=== PATIENT | female | born 1960 | race Caucasian/White ===

== ENCOUNTER 2021-11-04 06:49 | Emergency (ER) | payer OTHER, SELFPAY ==
[2021-11-04 06:52] VITALS: BP 136/88; PULSE 102; RESP 18; TEMP 37.1; O2SAT 99
--- NOTE | 2021-11-04 07:00 | DI.CT_ITS ---
Exam(s) CT CHEST WO EXAM: CT CHEST WO CLINICAL HISTORY: ?svc syndrome TECHNIQUE: Imaging Protocol: Axial computed tomography images with coronal and sagittal reformatted images were created and reviewed CONTRAST MATERIAL: Intravenous: Omnipaque 350 Contrast volume:structured data in ml. COMPARISON: No exams were available for comparison FINDINGS: Tracheobronchial tree: No bronchiectasis or mucous plugging. Mediastinum and Joycelyn: No dominant adenopathy or fluid collection. Pulmonary parenchyma: Linear atelectasis or scarring in the lingula and right middle lobe 5 millimete r left lower lobe nodule. No consolidation or dominant measurable mass. Pleura: No effusion or pneumothorax. Heart: Trace pericardial effusion versus pericardial thickening seen inferiorly. The heart is not di lated. Mild coronary artery calcifications are seen. SVC is normal in diameter. Aorta: Thoracic aorta non-dilated. Upper abdomen: Enlarged fatty liver. Small left adrenal adenoma. Lymph nodes: Within normal limits. Bones: Degenerative disc changes. No fractures.. Esophagus: Unremarkable. No obvious wall thickening or abnormal distension. Soft tissues: Unremarkable. IMPRESSION: Mild bilateral scarring and or atelectasis. Trace pericardial effusion versus pericardial thickening . 5 millimeter left lower lobe nodule. For high risk patients, consider low-dose screening CT in 1 year. For low risk patients, no further follow-up. RADIATION DOSE DELIVERED: 750.02mGy.cm Total DLP DATA REPOSITORY: All CT scans at this facility are submitted to the National Radiology Data Registry (NRDR) Dose Index Registry (DIR) with the [employer] (ACR). RADIATION OPTIMIZATION: All CT scans at this facility use at least one of these dose optimization te chniques: automated exposure control; mA and/or kV adjustment per patient size (includes targeted exa ms where dose is matched to clinical indication); or iterative reconstruction.
--- NOTE | 2021-11-04 07:12 | ED.GENADUL_ITS ---
Discharge Plan Disposition Patient Disposition: STILL A PATIENT Condition: Stable Discharge Details Clinical Impression: Facial swelling, Throat discomfort Primary Care Provider: Unknown,Unknown ED Provider: Jesus Greenberg Home Meds and New Rx's Prescriptions: No Action levothyroxine 137 mcg Tablet 137 mcg PO DAILY fluticasone propion-salmeterol [Advair Diskus] 250-50 mcg/dose Blister With Device 1 inh INHALATION BID venlafaxine 75 mg Capsule,Extended Release 24hr 75 mg PO DAILY metoprolol succinate 50 mg Tablet Extended Release 24 Hr 50 mg PO DAILY meloxicam 15 mg Tablet 15 mg PO DAILY albuterol sulfate 90 mcg/actuation Hfa Aerosol Inhaler 2 puff INHALATION 6XD PRN Medical Decision Making 61 yo female with hx of hypothyroidism, asthma, who comes in with chief complaint of facial swelling and neck swelling intermittently for the past two weeks. She states it seems the worst in the morning and gets better throughout the day. Today she woke up and felt more swollen in the neck and face so came here. She denies dyspnea, difficulty swallowing, rashes, abdominal pain, chest pain. She arrives stable speaking clearly in full sentences. She has no rashes on exam, no urticaria. She does have some edema under her eyes, no rashes and no warmth, eomi, no eye pain. She has no restricted neck movements, normal posterior pharynx and midline uvula. She has clear lung sounds. Her symptoms could be from allergies but given she reports her symptoms are worse in the morning concern for svc syndrome, will obtain ct chest without contrast and also ct neck though my suspicion for retropharyngeal abscess is low based on exam.Will give a dose of steroids and also obtain cbc, cmp, and tsh. Pt signed out to oncoming provider pending imaging and lab results Differential Diagnosis Differential Diagnosis: allergies, abscess, svc syndrome HPI General Mode of arrival: ambulatory . Date/Time Provider Initiated Documentation: 11/04/21 06:51 . Limitations to Documentation: no limitations . Information obtained by: patient . History of Present Illness 61 year old F presents to the emergency department with the chief complaint of facial and neck swelling, described as moderate, Patient started experiencing this week(s) (2) and it has been intermittent. No relieving factors improve symptom(s), Patient did receive the following treatments prior to arrival, none Related Data Home Medications Medication Instructions Recorded Confirmed albuterol sulfate 90 mcg/actuation 2 puff inhalation 6XD PRN 11/04/21 11/04/21 aerosol inhaler fluticasone 250 mcg-salmeterol 50 1 inh inhalation BID 11/04/21 11/04/21 mcg/dose blistr powdr for inhalation (Advair Diskus) levothyroxine 137 mcg tablet 137 mcg PO DAILY 11/04/21 11/04/21 meloxicam 15 mg tablet 15 mg PO DAILY 11/04/21 11/04/21 metoprolol succinate 50 mg 50 mg PO DAILY 11/04/21 11/04/21 tablet,extended release 24 hr venlafaxine 75 mg capsule,extended 75 mg PO DAILY 11/04/21 11/04/21 release 24 hr Allergies Allergy/AdvReac Type Severity Reaction Status Date / Time azithromycin [From Zithromax] AdvReac Unverified 11/04/21 07:00 General Stated Complaint: FacialProb JUAQUIN: 3 Review of Systems All systems reviewed & are unremarkable except as noted in HPI and below Constitutional Constitutional: Denies chills, Denies fever(s) and Denies weakness ENT Ears, Nose, Mouth, and Throat: Denies change in voice Cardiovascular Cardiovascular: Denies chest pain and Denies dyspnea Respiratory Respiratory: Denies cough and Denies dyspnea Gastrointestinal Gastrointestinal: Denies abdominal pain, Denies nausea and Denies vomiting Genitourinary Genitourinary: Denies dysuria Integumentary/Breasts Skin/Breast: Denies rash Neurologic Neurologic: Denies weakness PFSH All Active Problems (Updated 11/04/21 @ 07:22 by Jesus Greenberg MD) Facial swelling (Acute) Throat discomfort (Acute) Social History Smoking/Tobacco Use Status: Current every day Tobacco Type: e-cigarettes Smoking risk assessment performed?: Yes Alcohol Intake: never Drug use: Never Substance use type: does not use Do you feel safe at home: Yes Do you feel safe in your relationship?: Yes Exam Const General: no acute distress Orientation: alert HENCO Head: normal to inspection Ears: external ears normal General nose exam: external nose normal Mouth: moist mucous membranes Eyes General: appearance normal, both eyes and all related structures Neck Neck: normal visual inspection Resp Effort & Inspection: normal respiratory effort and able to speak in complete sentences Cardio Rate: regular rate GI Palpation: soft and nontender Skin General skin exam: no rashes or lesions noted Neuro General: patient alert and patient oriented x3 Extrem General: normal to inspection Psych Mental Status: mental status grossly normal Course Vital Signs Vital signs: Vital Signs Temperature 37.1 C 11/04/21 06:52 Pulse 102 H 11/04/21 06:52 Respiratory Rate 18 11/04/21 06:52 Blood Pressure 136/88 11/04/21 06:52 Pulse Oximetry 99 11/04/21 06:52 Temperature 37.1 C 11/04/21 06:52 Temperature Source Temporal Artery Scan 11/04/21 06:52 Pulse 102 H 11/04/21 06:52 Respiratory Rate 18 11/04/21 06:52 Respiratory Effort Non-Labored 11/04/21 06:58 Blood Pressure 136/88 11/04/21 06:52 Blood Pressure Position Sitting 11/04/21 06:52 Pulse Oximetry 99 11/04/21 06:52 Oxygen Delivery Method Room Air 11/04/21 06:52 Oxygen Flow Rate 0 11/04/21 06:52 Pain Level 0 11/04/21 06:52 Sign Out Sign Out Data: Sign Out Comment: 1-2 weeks facial and neck swelling that she says is worse in the morning. Does have some mild facial swelling, reassuring throat exam. Pending neck ct, chest ct for possible svc syndrome and reassessment Last updated by Jesus Greenberg MD at 11/04/21 07:29
[2021-11-04] MEDS: methylPREDNISolone SUCC 125 MG VIAL IVP (07:38)
[2021-11-04] MEDS: Normal Saline Flush 10 ML SYR IVP (07:38)
[2021-11-04 07:40] LABS: Abs Immature Grans 0.09 10^3/uL (0.0-0.06); Absolute Basophil Count 0.03 10^3/uL (0.0-0.2); Absolute Eosinophil Count 0.09 10^3/uL (0.0-0.7); Absolute Lymphocyte Count 1.69 10^3/uL (1.2-3.4); Absolute Monocyte Count 0.34 10^3/uL (0.1-0.8); Absolute Neutrophil Count 2.76 10^3/uL (1.2-6.7); Basophils % 0.6; Eosinophils % 1.8; HCT 42.4 % (36.0-46.0); HGB 14.9 g/dL (11.2-15.7); Immature Grans % 1.8; Lymphocytes % 33.8; MCH 32.2 pg (27.0-33.0); MCHC 35.1 % (32.0-36.0); MCV 92 fL (80-95); MPV 8.9 fL (8.0-11.0); Monocytes % 6.8; Neutrophils % 55.2; Platelet Count 346 10^3/uL (130-400); RBC 4.63 10^6/uL (3.93-5.22); RDW 12.3 % (11.7-14.6); RDW-SD 41.4 fL
[2021-11-04 07:58] LABS: Source Nasal/Nares
[2021-11-04 07:59] LABS: ALT 23 U/L (14-59); AST 13 U/L (15-37); Albumin 3.5 g/dL (3.4-5.0); Alkaline Phosphatase 86 U/L (46-116); Anion Gap 7.8 mmol/L (3-11); BUN 10 mg/dL (7-18); Bilirubin, Direct 0.1 mg/dL (0.0-0.2); Bilirubin, Total 0.4 mg/dL (0.2-1.0); CO2 28.2 mmol/L (21.0-32.0); CREATININE 0.8 mg/dL (0.55-1.02); Calcium 8.7 mg/dL (8.5-10.1); Chloride 105 mmol/L (98-107); Glucose 93 mg/dL (74-106); Lipase 65 U/L (73-393); Sodium 141 mmol/L (136-145); TSH (W/Ref FT4) 2.18 uIU/mL (0.36-3.74); Total Protein 7.2 g/dL (6.4-8.2)
--- NOTE | 2021-11-04 08:10 | DI.CT_ITS ---
Exam(s) CT NECK WO EXAM: CT NECK WO CLINICAL HISTORY: feels throat swelling ?abscess. TECHNIQUE: Imaging Protocol: Axial computed tomography images with coronal and sagittal reformatted images were created and reviewed CONTRAST MATERIAL: Noncontrast COMPARISON: No exams were available for comparison FINDINGS: Parotids/submandibular/thyroid gland: Normal. Lymphadenopathy: There is scattered lymph nodes seen along the level one to level three all measurin g less than 8 mm in short axis diameter which are physiologic in nature. Soft tissues: The floor the mouth is unremarkable. The epiglottis and vocal cords are within normal limits. Images through both lung apices are unremarkable. There are degenerative changes in the cervical spine. The esophagus is not dilated. Sinuses and mas toid air cells appear clear. IMPRESSION: No evidence of abscess or other acute abnormality. RADIATION DOSE DELIVERED: 726.63mGy.cm Total DLP DATA REPOSITORY: All CT scans at this facility are submitted to the National Radiology Data Registry (NRDR) Dose Index Registry (DIR) with the [employer] (ACR). RADIATION OPTIMIZATION: All CT scans at this facility use at least one of these dose optimization te chniques: automated exposure control; mA and/or kV adjustment per patient size (includes targeted exa ms where dose is matched to clinical indication); or iterative reconstruction.
[2021-11-04 08:16] VITALS: BP 126/60; PULSE 87; RESP 16; TEMP 36.4; O2SAT 98
[2021-11-04 08:48] LABS: COVID-19 PCR Negative (Negative)
[2021-11-04 09:48] VITALS: BP 105/91; PULSE 87; RESP 16; TEMP 36.4; O2SAT 96
--- NOTE | 2021-11-04 09:56 | DI.VRAD_ITS ---
PROCEDURE INFORMATION: Exam: CT Chest Without Contrast; Diagnostic Exam date and time: 11/04/2021 8:11 AM Age: 61 years old Clinical indication: Other: ? Svc TECHNIQUE: Imaging protocol: Diagnostic computed tomography of the chest without contrast. 3D rendering (Not supervised by radiologist): MIP and/or 3D reconstructed images were created by the technologist. Radiation optimization: All CT scans at this facility use at least one of these dose optimization techniques: automated exposure control; mA and/or kV adjustment per patient size (includes targeted exams where dose is matched to clinical indication); or iterative reconstruction. COMPARISON: CT NECK WO 11/04/2021 8:02 AM FINDINGS: Lungs: No focal airspace consolidation. Linear/bandlike opacities of the lingula and right middle lobe likely represent scarring versus atelectasis. There is a 5 mm nodule in the left lower lobe. Additional scattered 2-3 mm pulmonary micro nodules. Mild diffuse bronchial wall thickening. Pleural spaces: Unremarkable. No pneumothorax. No pleural effusion. Heart: Heart size is normal. Trace pericardial effusion measuring up to 1 cm in thickness. Mild coronary artery calcifications. Lymph nodes: Unremarkable. No enlarged lymph nodes. Vasculature: Unremarkable. No aortic aneurysm. Liver: Hepatic steatosis. Adrenal glands: Left adrenal gland 1.3 cm nodule with mean density of less than 10 Hounsfield units, consistent with adenoma. Bones/joints: Mild to moderate thoracic spondylosis. No acute osseous findings. Soft tissues: Unremarkable. IMPRESSION: 1. No acute intrathoracic findings. 2. A few solid pulmonary nodules, largest measures up to 5 mm. For patients at low risk (minimal or absent history of smoking and of other known risk factors), no routine follow-up is indicated. For patients at high risk (history of smoking or of other known risk factors), consider optional CT Chest at 12 months. (Reference: Deonte) REFERENCES: Justicehosunday H, et al. Guidelines for Management of Incidental Pulmonary Nodules Detected on CT Images: From the Fleischner Society 2017. Radiology. 2017;284(1):228-243. Dictated and Authenticated by: Malina Davila MD. Ordering:GUALBERTO Lee MD
--- NOTE | 2021-11-04 09:59 | DI.VRAD_ITS ---
PROCEDURE INFORMATION: Exam: CT Neck Without Contrast Exam date and time: 11/04/2021 8:02 AM Age: 61 years old Clinical indication: Other: Feels throat swelling ? abscess TECHNIQUE: Imaging protocol: Computed tomography of the neck without contrast. Radiation optimization: All CT scans at this facility use at least one of these dose optimization techniques: automated exposure control; mA and/or kV adjustment per patient size (includes targeted exams where dose is matched to clinical indication); or iterative reconstruction. COMPARISON: No relevant prior studies available. FINDINGS: Pharynx: Unremarkable non-contrast appearance. Larynx: Unremarkable non-contrast appearance. Epiglottis is normal. Prevertebral and retropharyngeal spaces: Unremarkable. Salivary glands: Unremarkable. Glands are normal in size. Thyroid: Normal. No enlarged or calcified nodules. Lymph nodes: No lymphadenopathy. Trachea: Visualized trachea is unremarkable. Lungs: Unremarkable as visualized. Bones/joints: Mild cervical spondylosis. No acute fracture. Soft tissues: No significant soft tissue swelling. IMPRESSION: No acute findings. Dictated and Authenticated by: Malina Davila MD. Ordering:GUALBERTO Lee MD
--- NOTE | 2021-11-04 10:14 | W.EDPROG ---
Date of service: 11/04/21 Time of Service: 10:14 Medical Decision Making Please see Dr. Greenberg's note regarding initial ED presentation course. Plan at signout was to follow-up on CT of the neck and CT of the chest. CT of the neck was interpreted by radiology: No acute findings. CT of the chest was interpreted by radiology: No acute intrathoracic findings. Few solid pulmonary nodules largest measuring up to 5 mm. Patient does have a smoking history. Patient should have repeat CT imaging in 12 months. Results were discussed with the patient and I recommended outpatient follow-up. Sign Out Sign Out Data: Sign Out Comment: 1-2 weeks facial and neck swelling that she says is worse in the morning. Does have some mild facial swelling, reassuring throat exam. Pending neck ct, chest ct for possible svc syndrome and reassessment Last updated by Jesus Greenberg MD at 11/04/21 07:29 Discharge Plan Disposition Patient Disposition: HOME Condition: Stable Discharge Details Clinical Impression: Facial swelling, Throat discomfort, Multiple pulmonary nodules Primary Care Provider: Unknown,Unknown ED Provider: John Meyers Home Meds and New Rx's Prescriptions: Continued levothyroxine 137 mcg Tablet 137 mcg PO DAILY fluticasone propion-salmeterol [Advair Diskus] 250-50 mcg/dose Blister With Device 1 inh INHALATION BID venlafaxine 75 mg Capsule,Extended Release 24hr 75 mg PO DAILY metoprolol succinate 50 mg Tablet Extended Release 24 Hr 50 mg PO DAILY meloxicam 15 mg Tablet 15 mg PO DAILY albuterol sulfate 90 mcg/actuation Hfa Aerosol Inhaler 2 puff INHALATION 6XD PRN Discharge Instructions Additional Instructions: CT imaging did reveal incidental finding of pulmonary nodules today. Given your history of smoking, it is recommended that you follow-up for repeat chest CT in 12 months. Please be sure to review CT results and outpatient plan in the future. Please contact your primary care physician to arrange follow-up. Return to the ER immediately for any worsening or new concerning symptoms. Discharge Data Discharge Date/Time-TO BE ENTERED AT DEPARTURE: 11/04/21 10:31
[2021-11-04 10:30] VITALS: BP 105/91; PULSE 87; RESP 16; TEMP 36.4; O2SAT 96
== END 2021-11-04 10:31 | disposition home or self-care (01) ==
PROVIDERS: Emergency Medicine; Emergency Provider Student in an Organized Health Care Education/Training Program
DX: R22.0 Localized swelling, mass and lump, head (principal); J02.9 Acute pharyngitis, unspecified; R22.1 Localized swelling, mass and lump, neck; R91.8 Other nonspecific abnormal finding of lung field
CPT/HCPCS: 36415; 71250; 80053; 83690; 87635; 96374; 99284; 70490; 82248; 83735; 84443; 85025; J2930

== ENCOUNTER 2021-11-06 17:52 | Emergency (ER) | payer OTHER, SELFPAY ==
[2021-11-06 18:03] VITALS: BP 152/84; PULSE 108; RESP 20; TEMP 36.5; O2SAT 97
[2021-11-06] MEDS: EPINEPHrine 0.3 MG KIT IM ×2 (18:22→20:44)
[2021-11-06] MEDS: diphenhydrAMINE 50 MG/ML VIAL 25 MG IVP (18:23)
[2021-11-06] MEDS: methylPREDNISolone SUCC 125 MG VIAL IVP (18:23)
--- NOTE | 2021-11-06 20:25 | W.ED.GENAD ---
Discharge Plan Disposition Patient Disposition: HOME Condition: Stable Discharge Details Clinical Impression: Facial swelling, Lip swelling Primary Care Provider: Unknown,Unknown ED Provider: Gala Almanza Home Meds and New Rx's Prescriptions: New prednisone 20 mg tablet 40 mg PO DAILY Qty: 10 0RF Continued levothyroxine 137 mcg Tablet 137 mcg PO DAILY fluticasone propion-salmeterol [Advair Diskus] 250-50 mcg/dose Blister With Device 1 inh INHALATION BID venlafaxine 75 mg Capsule,Extended Release 24hr 75 mg PO DAILY metoprolol succinate 50 mg Tablet Extended Release 24 Hr 50 mg PO DAILY meloxicam 15 mg Tablet 15 mg PO DAILY albuterol sulfate 90 mcg/actuation Hfa Aerosol Inhaler 2 puff INHALATION 6XD PRN Discontinued nystatin 100,000 unit/mL suspension 5 ml PO QID Label Comments: TAKE 5ML BY MOUTH FOUR TIMES A DAY SWISH FOR SEVERAL MINUTES THEN SWALLOW TYPICALLY START TO SEE IMPROVMENT IN 3 TO 4 DAYS CONTINUE MEDICATI Discharge Instructions Additional Instructions: Stop taking the clindamycin and the nystatin Take the prednisone daily, you will not need another dose until tomorrow You have been supplied an EpiPen, use today if you experience tongue swelling or difficulty swallowing, shortness of breath Please follow-up with your doctor your scheduled appointment Continue to take the steroids as prescribed Take Benadryl 25 mg every 6 hours for the next 3 to 5 days Return immediately should he have new or worsening complaints Medical Decision Making Initially I thought patient was on lisinopril my plan was to admit her, however sound like she was started on clindamycin for some facial swelling and nystatin Given that her symptoms are actually improved from this morning, she is maintaining secretions, and her airway is patent I think she stable for discharge home She has been there for 3 hours in the emergency department with improvement of symptoms after administration including Benadryl, epi, and Solu-Medrol These medications were discontinued She is placed on prednisone and will continue to take Benadryl Chest appointment with her primary care physician on Saturday and she is encouraged to follow-up for this appointment She is given list hospital to return should she have new or worsening complaints EpiPen was distributed for home with appropriate teaching Return precautions discussed in detail patient expressed understanding Reviewed CT findings from previous assessment Medical Records Medical records reviewed: Yes I reviewed the patient's medical records. HPI General Date/Time Provider Initiated Documentation: 11/06/21 17:59. HPI Narrative: This 61-year-old female presents with perioral edema, with report of left tongue swelling this morning when she awoke. Patient reportedly had Benadryl at that time and had partial alleviation of her tongue edema. She presents secondary to poor distant upper lip swelling. She states that she had COVID 2000 intermittent facial swelling. She states over the course of the past 3 days she has had random areas of perioral edema. She states she was placed on clindamycin approximately 3 days ago for her lip swelling reportedly. She was also placed on nystatin. She denies any chest pain or shortness of breath. She denies any dizziness or weakness. She denies any current difficulty swallowing. Related Data Home Medications Medication Instructions Recorded Confirmed albuterol sulfate 90 mcg/actuation 2 puff inhalation 6XD PRN 11/04/21 11/06/21 aerosol inhaler fluticasone 250 mcg-salmeterol 50 1 inh inhalation BID 11/04/21 11/06/21 mcg/dose blistr powdr for inhalation (Advair Diskus) levothyroxine 137 mcg tablet 137 mcg PO DAILY 11/04/21 11/06/21 meloxicam 15 mg tablet 15 mg PO DAILY 11/04/21 11/06/21 metoprolol succinate 50 mg 50 mg PO DAILY 11/04/21 11/06/21 tablet,extended release 24 hr venlafaxine 75 mg capsule,extended 75 mg PO DAILY 11/04/21 11/06/21 release 24 hr prednisone 20 mg tablet 40 mg PO DAILY #10 tabs 11/06/21 Previous Rx's Medication Instructions Recorded prednisone 20 mg tablet 40 mg PO DAILY #10 tabs 11/06/21 Allergies Allergy/AdvReac Type Severity Reaction Status Date / Time azithromycin [From Zithromax] AdvReac Unverified 11/06/21 18:07 General Stated Complaint: FacialProb JUAQUIN: 3 Review of Systems All systems reviewed & are unremarkable except as noted in HPI and below PFSH All Active Problems (Updated 11/06/21 @ 20:29 by JOYCE Aguilar) Facial swelling (Acute) Throat discomfort (Acute) Multiple pulmonary nodules (Acute) Lip swelling (Acute) Social History Smoking/Tobacco Use Status: Current every day Tobacco Type: e-cigarettes Smoking risk assessment performed?: Yes Alcohol Intake: never Drug use: Never Substance use type: does not use Do you feel safe at home: Yes Do you feel safe in your relationship?: Yes Exam Const General: cooperative, comfortable and no acute distress [facility] Face images: 1. swelling noted Other: Uvula midline, oropharynx patent, no tongue swelling Neck Neck images: 1. Mild swelling, no crepitus Resp Effort & Inspection: normal respiratory effort Auscultation: clear to auscultation bilaterally Cardio Rate: regular rate Rhythm: regular rhythm GI Inspection: normal to inspection Skin Lesions: no lesions Neuro General: patient alert and patient oriented x3 Cranial Nerves: tongue midline Course Vital Signs Vital signs: Vital Signs Temperature 36.5 C 11/06/21 18:03 Pulse 108 H 11/06/21 18:03 Respiratory Rate 20 11/06/21 18:03 Blood Pressure 152/84 H 11/06/21 18:03 Pulse Oximetry 97 11/06/21 18:03 Temperature 36.5 C 11/06/21 18:03 Temperature Source Skin 11/06/21 18:03 Pulse 108 H 11/06/21 18:03 Respiratory Rate 20 11/06/21 18:03 Respiratory Effort Non-Labored 11/06/21 18:23 Blood Pressure 152/84 H 11/06/21 18:03 Blood Pressure Position Sitting 11/06/21 18:03 Pulse Oximetry 97 11/06/21 18:03 Oxygen Delivery Method Room Air 11/06/21 18:03 Oxygen Flow Rate 0 11/06/21 18:03 Pain Level 0 11/06/21 18:23
[2021-11-06 20:45] VITALS: BP 128/64; PULSE 102; RESP 16; TEMP 36.3; O2SAT 95
== END 2021-11-06 20:47 | disposition home or self-care (01) ==
PROVIDERS: Emergency Provider Physician Assistant
DX: R22.0 Localized swelling, mass and lump, head (principal); R60.9 Edema, unspecified
CPT/HCPCS: 87635; 96372; 96374; 96375; 99284; 99283; J0171; J1200; J2930

== ENCOUNTER 2022-01-04 00:59 | Outpatient (CLI) | payer OTHER, SELFPAY ==
--- NOTE | 2022-01-04 09:00 | ETT_ITS ---
APPROVED REPORT Exam: Exercise Treadmill Patient Location: Out-Patient Room/Bed: Stress Nurse: Mary Simon RN Ordering Provider:RACHELLE ESTES, Contact Number: [phone] BMI: 41.19 Baseline Rhythm: Sinus Rhythm Comment: Metoprolol succinate last taken on 01/02/22 Indications: Chest pain. Medical History Medical History: CAD. Chest pain. HTN. HLD. Nicotine dependence. Edema. Insomnia. Obesity. Anxiety. D iverticulitis. Cardiac Medications: Metoprolol succinate. HCTZ. Advair. Albuterol MDI. Omeprazole. Allergies: Azithromycin Cardiac Risk Factors: Family hx. CVD. HTN. Current smoker. HLD. Asthma. Obesity. Previous Cardiac Procedures: None. Pretest Chest Pain Characteristics: None. Exercise History: Sedentary Physical Disabilities: None. Lung Sounds: Clear to auscultation. Heart Sounds: Regular Stress Test Details Test: Exercise stress testing was performed using a Linwood protocol. Rest Stress HR Resting HR Supine: 92 bpm Max Heart Rate (APMHR): 159 bpm Resting HR Standin bpm Target HR (85% APMHR): 135 bpm Max HR Achieved: 158 bpm % of APMHR: 99 Recovery HR: 98 bpm HR response to stress: Normal HR response to stress Comment: Pt held her Metoprolol succinate for 2 days prior to this test. BP Resting BP Supine: 132/74 mmHg Resting BP Standin/76 mmHg Max BP: 188/70 mmHg Recovery BP: 134/70 mmHg BP response to stress: Normal blood pressure response to stress. ECG Resting ECG: Sinus Rhythm Ectopy: None Stress ECG: Sinus Tachycardia ST Change: Downsloping ST depression, No significant ST segment changes noted Maximum ST Deviation: 1-2 mm Arrhythmia: None Recovery ECG: Sinus Rhythm Recovery ST Change: Downsloping ST depression Lead(s): II,III,aVF Recovery ST Deviation: 1-2 mm Recovery Arrhythmia: None Comment: Downsloping in inferior leads immediate recovery, returned to baseline within 1 minute of re covery. Clinical Reason for Termination: Dyspnea, Fatigue Stress Symptoms: Dyspnea Exercise duration: 4 min59 sec Highest Stage Reached: Stage 2: 2.5 mph at 12% grade. Exercise capacity: 7.02 METs Scale: Sedentary Angina Score: None Richards Treadmill Score: 1.0 Rate Pressure Product: [id number] Stress ECG Conclusion 1. Resting electrocardiogram was within normal limits 2. Patient exercised on the Linwood protocol completed a workload of 7.02 METS, limited by shortness of breath 3. Normal heart rate and blood pressure response to exercise. Patient achieved 99% of predicted hear t rate for age 4. Electrocardiographic portion of the test was consistent with myocardial ischemia with [address] d epression noted in leads V3 through V6 at peak exercise, [address] depression in leads II, III and aVF 5. There were no dysrhythmias 6. Consider repeat with imaging if clinically indicated Richards Treadmill Score is 1.0 which is Moderate risk. Stress Test Summary STAGE Time (mins) Speed (mph) Grade (%) HR BP SpO2 SYMPTOMS METS Supine 92 132/74 Standing 99 128/76 1 3 1.7 10 143 148/82 4.5 2 6 2.5 12 158 92% Moderate SOB 7 1 min recovery 124 188/70 97% SOB subsided. 3 min recovery 106 168/78 6 min recovery 98 134/70
== END 2022-01-04 01:19 ==
LOC: DI 01:00
PROVIDERS: Visit Provider Neuromusculoskeletal Medicine & OMM
DX: R07.89 Other chest pain (principal); I25.6 Silent myocardial ischemia; I25.10 Atherosclerotic heart disease of native coronary artery without angina pectoris; I10 Essential (primary) hypertension
CPT/HCPCS: 93017

== ENCOUNTER 2022-06-28 00:42 | Outpatient (CLI) | payer OTHER, SELFPAY ==
--- NOTE | 2022-06-28 09:45 | DI.NM_ITS ---
APPROVED REPORT Exam: Exercise Treadmill Patient Location: Out-Patient Room/Bed: Stress Nurse: Neda Naranjo RN Ordering Provider:RACHELLE ESTES, Contact Number: [phone] BMI: 42.90 Baseline Rhythm: Sinus Rhythm Indications: +Stress test December 2021, repeat with imaging suggested, CP w/ exertion Medical History Medical History: Pulmonary nodules, mild mitral regurgitation, HTN, HLD, asthma, currently vapes, obe sity Cardiac Medications: Metoprolol, Advair, Albuterol Allergies: Azithromycin Cardiac Risk Factors: +family history, HTN, HLD, asthma, vaping, obesity Previous Cardiac Procedures: None Pretest Chest Pain Characteristics: None Exercise History: Sedentary Physical Disabilities: Deconditioned Heart Sounds: Regular Stress Test Details Test: Exercise stress testing was performed using a Linwood protocol. Nuclear Acquisition: Rest Tc-99m/Stress Tc-99m 1 day Rest Isotope: Tc-99m Sestamibi. Dose: 11.5 Date: 06/28/2022 Injection Time: 09:15 Stress Isotope: Tc-99m Sestamibi. Dose: 37 Date: 06/28/2022 Injection Time: 11:00 HR Resting HR Supine: 84 bpm Max Heart Rate (APMHR): 158.853100 bpm Resting HR Standin bpm Target HR (85% APMHR): 134.737166 bpm Max HR Achieved: 150 bpm % of APMHR: 94.94 Recovery HR: 93 bpm HR response to stress: Normal HR response to stress Comment: Last dose of metoprolol was in the morning on Saturday06/27/22 BP Resting BP Supine: 128/72 mmHg Resting BP Standin/74 mmHg Max BP: 200/82 mmHg Recovery BP: 126/60 mmHg BP response to stress: Normal blood pressure response to stress. ECG Resting ECG: Sinus Rhythm Ectopy: Rare PVC Comment: Flat/inverted T wave in aVL Stress ECG: Sinus Tachycardia ST Change: ST depression Lead(s): II, III, aVF, V3, V4, V5, V6 Stage: [address] Deviation: 1-2 mm Arrhythmia: None Recovery ECG: Sinus Rhythm Recovery Arrhythmia: None Comment: ST depression started to resolve within 1 minute of recovery Clinical Reason for Termination: Fatigue, ST changes Stress Symptoms: Dyspnea Exercise duration: 2 min58 sec Highest Stage Reached: Stage 1: 1.7 mph at 10% grade. Exercise capacity: 4.64 METs Angina Score: None Richards Treadmill Score: -1.0 Rate Pressure Product: [id number] Stress ECG Conclusion 1. The resting electrocardiogram was within normal limits 2. Patient exercised on the Linwood protocol and completed a workload of 4.64 METS, limited by dyspnea 3. Normal heart rate and blood pressure response to exercise. Patient achieved 95% of predicted hear t rate for age 4. Electrocardiographic portion of the test was consistent with myocardial ischemia 5. There were no dysrhythmias 6. See MPI report Richards Treadmill Score is -1.0 which is Moderate risk. Stress Test Summary STAGE Time (mins) Speed (mph) Grade (%) HR BP SpO2 SYMPTOMS METS Supine 84 128/72 Standing 92 132/74 1 3 1.7 10 148 168/88 shortness of breath 4.5 1 min recovery 129 200/82 3 min recovery 100 162/68 6 min recovery 93 126/60 MPI Conclusion Myocardial perfusion is normal. There is no ischemia or evidence of prior infarction Ejection fraction is 63% with normal wall motion Radiologist Interpretation Radiologist agrees with Garbage Truck Driver's Interpretation. Radiologist Interpretation by: Victor Manuel Aviles MD Interpretation Date/Time: 07/03/2022 15:27:08
== END 2022-06-28 01:02 ==
PROVIDERS: Visit Provider Neuromusculoskeletal Medicine & OMM
DX: R07.89 Other chest pain (principal)
CPT/HCPCS: 78452; 93017

== ENCOUNTER 2025-02-13 12:22 | Emergency (ER) | payer OTHER, SELFPAY ==
[2025-02-13 12:33] VITALS: BP 132/80; PULSE 95; RESP 20; TEMP 37; O2SAT 92
--- NOTE | 2025-02-13 12:53 | W.ED.GENAD ---
Discharge Plan Disposition Patient Disposition: Home Condition: Stable Discharge Details Clinical Impression: Fracture of left ninth rib Primary Care Provider: Unknown,Unknown ED Provider: Travis Massey Home Meds and New Rx's Prescriptions: Continued levothyroxine 137 mcg Tablet 137 mcg PO DAILY venlafaxine 75 mg Capsule,Extended Release 24hr 75 mg PO DAILY metoprolol succinate 50 mg Tablet Extended Release 24 Hr 50 mg PO DAILY albuterol sulfate 90 mcg/actuation Hfa Aerosol Inhaler 2 puff INHALATION 6XD PRN trazodone 50 mg tablet 50 mg PO QHS lorazepam 0.5 mg tablet 0.5 mg PO PRN omeprazole 40 mg capsule,delayed release(DR/EC) 40 mg PO DAILY Wegovy 2.4 mg/0.75 mL pen injector 2.4 mg SUBCUT .q week Patient Comments: 2.4MG SUBCUTANEOUS EVERY WEEK, FOR 4 WEEKS,ROTATE IN THE ABDOMEN,THIGH, OR UPPER ARM tramadol 100 mg tablet 100 mg PO QID PRN Patient Comments: TAKE ONE TABLET BY MOUTH FOUR TIMES A DAY FOR 30 DAYS NEEDED FOR PAIN Discharge Instructions Instructions: Rib Fracture or Bruised Rib ED Additional Instructions: You were seen in the emergency department for your pain after falling into a coffee table, you have 2 subtle fractures of your left ninth rib, you may need further chest x-rays to ensure routine healing, use the incentive spirometer for deep breathing exercises that we provided, take 650 mg of Tylenol every 6 hours, chcf between these dosings take 4 mg of ibuprofen, ice the area and use pillows wrapped around her body to brace herself when at home especially when sneezing or coughing, please return for any fever developing cough or shortness of breath. Discharge Data Discharge Date/Time-TO BE ENTERED AT DEPARTURE: 02/13/25 15:52 HPI General Date/Time Provider Initiated Documentation: 02/13/25 12:52. HPI Narrative: 64 year-old female presents to ED today by POV/ambulating with a chief complaint of fall 1.5 weeks ago, striking a coffee table on the L side of her chest. Quality described as pain with deep breathing, hurts to cough, no radiation to fever, developing URI symptoms, central chest pain, abdominal pain, dizziness, sweating. Severity is described as 10 when moving, but manageable at rest 4/10. Palliating factors include took a tramadol today. Provoking factors include deep breaths, coughs, movement. Patient not anticoagulated. Related Data Home Medications ?Medication ?Instructions ?Recorded ?Confirmed albuterol sulfate 90 mcg/actuation 2 puff inhalation 6XD PRN 11/04/21 02/13/25 aerosol inhaler levothyroxine 137 mcg tablet 137 mcg PO DAILY 11/04/21 02/13/25 metoprolol succinate 50 mg 50 mg PO DAILY 11/04/21 02/13/25 tablet,extended release 24 hr venlafaxine 75 mg capsule,extended 75 mg PO DAILY 11/04/21 02/13/25 release 24 hr lorazepam 0.5 mg tablet 0.5 mg PO PRN 02/13/25 02/13/25 omeprazole 40 mg capsule,delayed 40 mg PO DAILY 02/13/25 02/13/25 release semaglutide (weight loss) 2.4 2.4 mg subcut .q week 02/13/25 02/13/25 mg/0.75 mL subcutaneous pen injector (Abiola) tramadol 100 mg tablet 100 mg PO QID PRN 02/13/25 02/13/25 trazodone 50 mg tablet 50 mg PO QHS 02/13/25 02/13/25 Allergies Allergy/AdvReac Type Severity Reaction Status Date / Time NSAIDS (Non-Steroidal Allergy Severe Anaphylaxis Verified 02/13/25 12:39 Anti-Inflamma azithromycin (From Zithromax) AdvReac Mild Hives Verified 02/13/25 12:39 General Stated Complaint: Chest/Rib JUAQUIN: 4 Review of Systems All systems reviewed & are unremarkable except as noted in HPI and below Exam Narrative Exam Narrative: GENERAL APPEARANCE: Well-nourished, non-toxic, awake and alert, atraumatic, mild acute distress. SKIN: Warm, pink, dry, intact, without rashes/lesions/ulcerations. HEAD: Normocephalic, atraumatic, normal hair distribution for gender/age. EYES: Normal conjunctiva, no exudates on lids/lashes. ENT: Nares patent, no circumoral cyanosis, no facial swelling NECK: Supple, trachea midline, painless cervical ROM. LUNGS/CHEST: Lungs CTA bilaterally-no focally diminished or absent lung sounds, non-labored respirations, normal A/P diameter, symmetrical expansion, no chest wall deformity -left posterior lateral lower rib tenderness without crepitus HEART (CV/PV): Regular rate and rhythm without murmur, no peripheral edema, no JVD. ABDOMEN: Soft, non-distended, no guarding, no tenderness. MSK: Normal ROM, no swelling/deformity to bilateral UEs or LEs, moving all extremities without weakness, no cyanosis, spine midline without tenderness, normal curvature. NEURO: Mental Status AAOx4 - alert to person, place, time, events No facial droop, no forehead involvement. Motor: No focal weakness - strength 5/5 in bilateral UEs and LEs, proximal and distal, symmetric. Sensory: sensation intact to light touch globally. Gait normal: patient ambulated without ataxia into ED room. PSYCH: euthymic, cooperative, pleasant, appropriate speech Course Vital Signs Vital signs: Vital Signs Temperature 37.0 C 02/13/25 12:33 Pulse 95 H 02/13/25 12:33 Respiratory Rate 20 02/13/25 12:33 Blood Pressure 132/80 02/13/25 12:33 Pulse Oximetry 92 02/13/25 12:33 Temperature 37.0 C 02/13/25 12:33 Temperature Source Oral 02/13/25 12:33 Pulse 95 H 02/13/25 12:33 Respiratory Rate 20 02/13/25 12:33 Blood Pressure 132/80 02/13/25 12:33 Blood Pressure Position Sitting 02/13/25 12:33 Pulse Oximetry 92 02/13/25 12:33 Oxygen Delivery Method Room Air 02/13/25 12:33 Oxygen Flow Rate 0 02/13/25 12:33 Pain Level 5 02/13/25 12:33 Medical Decision Making This dictation utilizes [id number] dictation software and may contain unedited grammatical errors. 64 year-old female presents to ED today by POV/ambulating with a chief complaint of fall 1.5 weeks ago, striking a coffee table on the L side of her chest. Quality described as pain with deep breathing, hurts to cough, no radiation to fever, developing URI symptoms, central chest pain, abdominal pain, dizziness, sweating. Severity is described as 10 when moving, but manageable at rest 4/10. Palliating factors include took a tramadol today. Provoking factors include deep breaths, coughs, movement. Patients' medical history: Noncontributory. Family and social history: Lives at home with family. Pertinent exam findings / vital signs include left posterior lateral rib tenderness in the lower ribs 9 through 12, no focally diminished or absent lung sounds, no flail segment or paradoxical motion, benign abdomen. Differential / pathologies of concern include rib fracture, bruised rib, pneumothorax. Diagnostic studies of: - CT chest without contrast-shows 1 old subacute fracture of the ninth rib and 1 more acute fracture. Interventions of: - Incentive spirometer provided. ED Course/Assessment/Plan: 64-year-old female presents with a fall onto coffee table with no isolated rib fracture, counseled on incentive spirometer use, has tramadol at home, recommend ICE therapy as well as therapeutic dosing of Tylenol and ibuprofen.. Strict return criteria for developing URI or fever Findings not consistent with pneumothorax, pneumonia, flail segment. Disposition of fracture of left ninth rib. Patient verbalized understanding of the plan and return to ED criteria and engaged in shared decision making. Medical Records Medical records reviewed: Yes I reviewed the patient's medical records. Imaging Data Radiologic Study: Attestation: I personally reviewed and interpreted this imaging study as follows: Imaging: CT Scan Radiologist's impression: Exam: CT Chest Without Contrast; Diagnostic Exam date and time: 02/13/2025 1:32 PM Age: 64 years old Clinical indication: Pain; Left-sided; Additional info: L posterior lower rib pain TECHNIQUE: Imaging protocol: Diagnostic computed tomography of the chest without contrast. 3D rendering (Not supervised by radiologist): MIP and/or 3D reconstructed images were created by the technologist. COMPARISON: CT CHEST WO 11/04/2021 8:11 AM FINDINGS: Lungs: There are subcentimeter bilateral nodules in the lungs. These are unchanged or improved compared to prior study. There is mild lingular fibrosis, unchanged from prior exam. Pleural spaces: Unremarkable. No pneumothorax. No pleural effusion. Heart: Unremarkable. No cardiomegaly. No pericardial effusion. Lymph nodes: Unremarkable. No enlarged lymph nodes. Vasculature: Mild atherosclerotic change noted in the vasculature. Bones/joints: There is a small lucent lesion with sclerotic margination measuring 6 mm in diameter series well of image 129 involving the left 6th rib. This is unchanged compared to previous exam consistent with nonacute process. There is a subacute slightly comminuted fracture of the left anterior 9th rib with a more acute appearing lateral nondisplaced fracture. Soft tissues: Unremarkable. IMPRESSION: There are 2 fractures of the left 9th rib, subacute and more acute appearing. Dictated and Authenticated by: Sara Fink MD. FORMERLY [facility], 1928–1983 All Active Problems (Updated 02/13/25 @ 15:33 by JOYCE Maldonado) Fracture of left ninth rib (Acute) Social History Smoking/Tobacco Use Status: Current every day Tobacco Type: e-cigarettes Smoking risk assessment performed?: Yes Alcohol Intake: never Drug use: Never Substance use type: does not use Do you feel safe at home: Yes Do you feel safe in your relationship?: Yes
--- NOTE | 2025-02-13 13:40 | DI.CT_ITS ---
Exam(s) CT CHEST WO EXAM: CT CHEST WO CLINICAL HISTORY: L posterior lower rib pain. TECHNIQUE: Imaging protocol: Axial computed tomography images were obtained and coronal and sagittal reformatted images were created and reviewed. COMPARISON: CT CT CHEST WO from 11/04/2021 FINDINGS: Tracheobronchial tree: Patent where visualized. Mediastinum and Joycelyn: No dominant adenopathy or fluid collection. Pulmonary parenchyma: No consolidation or dominant measurable mass. Mild lingular scarring. There are few tiny scattered micro nodules. Pleura: No effusion or pneumothorax. Heart: The heart is not dilated. Minimal coronary artery calcifications are seen. Aorta: Thoracic aorta non-dilated. Mild atherosclerotic changes. Upper abdomen: Unremarkable. Lymph nodes: Within normal limits. Bones:Stable mild midthoracic compression fractures. Degenerative changes in the thoracic spine. Congenital fusion between T8 and T9. There is an old rib fracture involving the left anterior 9th rib. There is also a acute fracture of the lateral left 9th rib. There is also questionable nondisplaced fracture of the left 10th rib. Tubes, Catheters, and Lines: None IMPRESSION: Acute or subacute fracture of the lateral left 9th rib. Also question of fracture of the left 10th rib. Old fracture of the anterior left 9th rib. The lungs are clear. The preliminary [facility] report was reviewed. RADIATION DOSE DELIVERED: Total DLP DATA REPOSITORY: All CT scans at this facility are submitted to the National Radiology Data Registry (NRDR) Dose Index Registry (DIR) with the [employer] (ACR). RADIATION OPTIMIZATION: All CT scans at this facility use at least one of these dose optimization techniques: automated exposure control; mA and/or kV adjustment per patient size (includes targeted exams where dose is matched to clinical indication); or iterative reconstruction.
--- NOTE | 2025-02-13 15:31 | DI.[facility]_ITS ---
PROCEDURE INFORMATION: Exam: CT Chest Without Contrast; Diagnostic Exam date and time: 02/13/2025 1:32 PM Age: 64 years old Clinical indication: Pain; Left-sided; Additional info: L posterior lower rib pain TECHNIQUE: Imaging protocol: Diagnostic computed tomography of the chest without contrast. 3D rendering (Not supervised by radiologist): MIP and/or 3D reconstructed images were created by the technologist. COMPARISON: CT CHEST WO 11/04/2021 8:11 AM FINDINGS: Lungs: There are subcentimeter bilateral nodules in the lungs. These are unchanged or improved compared to prior study. There is mild lingular fibrosis, unchanged from prior exam. Pleural spaces: Unremarkable. No pneumothorax. No pleural effusion. Heart: Unremarkable. No cardiomegaly. No pericardial effusion. Lymph nodes: Unremarkable. No enlarged lymph nodes. Vasculature: Mild atherosclerotic change noted in the vasculature. Bones/joints: There is a small lucent lesion with sclerotic margination measuring 6 mm in diameter series well of image 129 involving the left 6th rib. This is unchanged compared to previous exam consistent with nonacute process. There is a subacute slightly comminuted fracture of the left anterior 9th rib with a more acute appearing lateral nondisplaced fracture. Soft tissues: Unremarkable. IMPRESSION: There are 2 fractures of the left 9th rib, subacute and more acute appearing. Dictated and Authenticated by: Sara Fink MD. Orderin Bryson Robles MD
== END 2025-02-13 15:52 | disposition home or self-care (01) ==
PROVIDERS: Emergency Provider Physician Assistant
DX: S22.32XA Fracture of one rib, left side, initial encounter for closed fracture (principal); W19.XXXA Unspecified fall, initial encounter
CPT/HCPCS: 99284; 99283; 71250